=== PATIENT | male | born 1980 | race African-American/Black ===

== ENCOUNTER 2016-11-27 04:12 | Emergency (ER) | payer SELFPAY ==
[~2016-11-27] VITALS: Ht 185.4 cm; Wt 90.7 kg
[~2016-11-27 04:12] MED LIST: CYCL10TA2 PO; NAPR500T PO
[2016-11-27 04:25] VITALS: BP 145/87
[2016-11-27] MEDS ORDERED: HYDR-2666 PO (04:44)
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
[2016-11-27] MEDS ORDERED: DIPHTH,PERTUSS(ACELL),TET TOX 0.5 ML DISP.SYRIN. VAX IM ONE (05:00)
== END 2016-11-27 05:00 | disposition home or self-care (01) ==
LOC: ER 04:12
DX: S01.01XA Laceration without foreign body of scalp, initial encounter (principal); F12.10 Cannabis abuse, uncomplicated; Y04.8XXA Assault by other bodily force, initial encounter; Y93.89 Activity, other specified; Y92.098 Other place in other non-institutional residence as the place of occurrence of the external cause; Y99.8 Other external cause status
CPT/HCPCS: 12002; 90471; 90715; 99283-25

== ENCOUNTER 2016-12-07 07:16 | Emergency (ER) | payer SELFPAY ==
[~2016-12-07] VITALS: Ht 185.4 cm; Wt 90.7 kg
[~2016-12-07 07:16] MED LIST changes: +HYDR-2666 PO
[2016-12-07 07:24] VITALS: BP 144/85
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
== END 2016-12-07 07:54 | disposition home or self-care (01) ==
LOC: ER 07:16
DX: S01.01XD Laceration without foreign body of scalp, subsequent encounter (principal); F12.10 Cannabis abuse, uncomplicated; Y08.89XD Assault by other specified means, subsequent encounter; Y93.89 Activity, other specified; Y92.89 Other specified places as the place of occurrence of the external cause; Y99.8 Other external cause status
CPT/HCPCS: 99281

== ENCOUNTER 2017-01-30 06:41 | Observation (INO) | payer SELFPAY ==
[~2017-01-30] VITALS: Ht 185.4 cm; Wt 88.5 kg
--- NOTE | 2017-01-30 07:10 | PHYS DOC ---
Past Medical History Past Medical History: No Pertinent History Past Surgical History: No Surgical History Alcohol Use: None Drug Use: None Adult General Chief Complaint Chief Complaint: CHEST WALL PAIN HPI HPI Patient is a 36 year old male who presents with right-sided chest pain. 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 He denies a family history of heart disease but does smoke a pack per day for the last 20 years. He states he's never had a cardiac workup before. Review of Systems Review of Systems Constitutional: Denies fever or chills [] Eyes: Denies change in visual acuity, redness, or eye pain [] HENT: Denies nasal congestion or sore throat [] Respiratory: Denies cough or shortness of breath [] Cardiovascular: No additional information not addressed in HPI [] GI: Denies abdominal pain, nausea, vomiting, bloody stools or diarrhea [] : Denies dysuria or hematuria [] Musculoskeletal: Denies back pain or joint pain [] Integument: Denies rash or skin lesions [] Neurologic: Denies headache, focal weakness or sensory changes [] Endocrine: Denies polyuria or polydipsia [] Current Medications Current Medications Current Medications Medications (Trade) Dose Ordered Sig/Emerita Start Time Stop Time Status Last Admin Dose Admin Aspirin (Children'S Aspirin) 324 mg 1X ONCE 01/30/17 07:15 01/30/17 07:16 DC 01/30/17 07:14 324 MG Morphine Sulfate 2 mg PRN Q15MIN PRN 01/30/17 07:15 01/31/17 07:14 01/30/17 07:16 2 MG Allergies Allergies Allergies Coded Allergies Type Severity Reaction Last Updated Verified No Known Drug Allergies 05/20/16 No Physical Exam Physical Exam Constitutional: Well developed, well nourished, no acute distress, non-toxic appearance. [] HENT: Normocephalic, atraumatic, bilateral external ears normal, oropharynx moist, no oral exudates, nose normal. [] Eyes: PERRLA, EOMI, conjunctiva normal, no discharge. [] Neck: Normal range of motion, no tenderness, supple, no stridor. [] Cardiovascular:Heart rate regular rhythm, no murmur, mild tender to palpation over the sternum. Lungs & Thorax: Bilateral breath sounds clear to auscultation [] Abdomen: Bowel sounds normal, soft, no tenderness, no masses, no pulsatile masses. [] Skin: Warm, dry, no erythema, no rash. [] Back: No tenderness, no CVA tenderness. [] Extremities: No tenderness, no cyanosis, no clubbing, ROM intact, no edema. [] Neurologic: Alert and oriented X 3, normal motor function, normal sensory function, no focal deficits noted. [] Psychologic: Affect normal, judgement normal, mood normal. [] Current Patient Data Vital Signs Vital Signs Date Time Temp Pulse Resp B/P Pulse Ox O2 Delivery O2 Flow Rate FiO2 01/30/17 07:55 67 20 160/89 100 Room Air 01/30/17 06:54 97.7 97.7 Lab Values Laboratory Tests Test 01/30/17 06:50 White Blood Count 7.4x10^3/uL (4.0-11.0) Red Blood Count 5.26x10^6/uL (4.30-5.70) Hemoglobin 15.5g/dL (13.0-17.5) Hematocrit 46.9% (39.0-53.0) Mean Corpuscular Volume 89fL (79-100) Mean Corpuscular Hemoglobin 29pg (25-35) Mean Corpuscular Hemoglobin Concent 33g/dL (31-37) Red Cell Distribution Width 14.1% (11.5-14.5) Platelet Count 215x10^3/uL (140-400) Neutrophils (%) (Auto) 52% (31-73) Lymphocytes (%) (Auto) 35% (24-48) Monocytes (%) (Auto) 9% (0-9) Eosinophils (%) (Auto) 3% (0-3) Basophils (%) (Auto) 1% (0-3) Neutrophils # (Auto) 3.9x10^3uL (1.8-7.7) Lymphocytes # (Auto) 2.6x10^3/uL (1.0-4.8) Monocytes # (Auto) 0.7x10^3/uL (0.0-1.1) Eosinophils # (Auto) 0.2x10^3/uL (0.0-0.7) Basophils # (Auto) 0.1x10^3/uL (0.0-0.2) Prothrombin Time 13.0SEC (11.7-14.0) Prothrombin Time INR 1.0 (0.8-1.1) D-Dimer (Azra) < 0.27ug/mlFEU (0.00-0.50) Sodium Level 140mmol/L (136-145) Potassium Level 4.1mmol/L (3.5-5.1) Chloride Level 104mmol/L (98-107) Carbon Dioxide Level 28mmol/L (21-32) Anion Gap 8 (6-14) Blood Urea Nitrogen 13mg/dL (8-26) Creatinine 1.3mg/dL (0.7-1.3) Estimated GFR (Cockcroft-Gault) 74.8 Glucose Level 105mg/dL (70-99) H Calcium Level 8.6mg/dL (8.5-10.1) Magnesium Level 2.0mg/dL (1.8-2.4) Total Bilirubin 0.4mg/dL (0.2-1.0) Direct Bilirubin 0.1mg/dL (0.0-0.2) Aspartate Amino Transferase (AST) 25U/L (15-37) Alanine Aminotransferase (ALT) 46U/L (16-63) Alkaline Phosphatase 75U/L (46-116) Creatine Kinase 338U/L (39-308) H Creatine Kinase MB (Mass) 2.4ng/mL (0.0-3.6) Creatine Kinase MB Relative Index 0.7% (0-4) Troponin I Quantitative < 0.017ng/mL (0.000-0.055) KX-Xtq-S-Type Natriuretic Peptide 21pg/mL (0-124) Total Protein 7.7g/dL (6.4-8.2) Albumin 3.9g/dL (3.4-5.0) Lipase 493U/L (73-393) H Laboratory Tests 01/30/17 06:50 Laboratory Tests 01/30/17 06:50 EKG EKG EKG shows normal sinus rhythm with a rate of [address] elevations or T-wave inversions, normal axis, QTC 376 ms, as interpreted by me. Radiology/Procedures Radiology/Procedures [facility] [address] [place] [address] IMAGING REPORT Signed PATIENT: BASIL RANKIN ACCOUNT: [id number] : 1980 LOCATION: ER AGE: 36 SEX: M EXAM STATUS: REG ER ORD. PHYSICIAN: JORGE GREEN MD REASON: chest pain PROCEDURE: PORTABLE CHEST 1V Portable chest, 01/30/2017: History: Right-sided chest pain Comparison is made to a study from 05/20/2016. The heart size and pulmonary vascularity are normal. No pulmonary infiltrates are seen. There is no evidence of pleural fluid. IMPRESSION: No acute cardiopulmonary abnormality is detected. DICTATED and SIGNED BY: SABINO STERLING MD DATE: 01/30/17723 CC: JORGE GREEN MD; NO PCP ~ Impressions: Chest pain Tobacco abuse Course & Med Decision Making Course & Med Decision Making Pertinent Labs and Imaging studies reviewed. (See chart for details) EKG, chest x-ray does not show acute abnormalities. His first troponin is negative his d-dimer is also negative. His lipase is slightly elevated however he is not tender across his abdomen and this is in his chest wall versus chest area. He is being admitted to the hospitalist with cardiology consultation. Patient's agreeable plans in stable condition this time. Dragon Disclaimer Dragon Disclaimer This electronic medical record was generated, in whole or in part, using a voice recognition dictation system. Departure Departure Impression: Primary Impression: Chest pain Disposition: ADMITTED INPATIENT Admitting Physician: Scott Henderson Condition: STABLE Referrals: NO PCP (PCP) JORGE GREEN MD Jan 30, 2017 07:10
[2017-01-30 07:13] LABS: BASO # 0.1 x10^3/uL (0.0-0.2); BASO % 1 % (0-3); EOS % 3 % (0-3); HEMATOCRIT 46.9 % (39.0-53.0); HEMOGLOBIN 15.5 g/dL (13.0-17.5); LYMPH # 2.6 x10^3/uL (1.0-4.8); LYMPH % 35 % (24-48); MEAN CORPUSCULAR HEMOGLOBIN 29 pg (25-35); MEAN CORPUSCULAR HGB CONC 33 g/dL (31-37); MEAN CORPUSCULAR VOLUME 89 fL (79-100); MONO % 9 % (0-9); NEUT % 52 % (31-73); PLATELET COUNT 215 x10^3/uL (140-400); RED BLOOD COUNT 5.26 x10^6/uL (4.30-5.70); RED CELL DISTRIBUTION WIDTH 14.1 % (11.5-14.5); WHITE BLOOD COUNT 7.4 x10^3/uL (4.0-11.0)
[2017-01-30] MEDS ORDERED: MORPHINE SULFATE 2 MG/ML DISP.SYRIN. IV/SQ PRN (07:15)
[2017-01-30] MEDS ORDERED: ASPIRIN CHEWABLE 81 MG TABLET. PO ONE (07:15)
--- NOTE | 2017-01-30 07:15 | EKG ---
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
[2017-01-30 07:24] LABS: CALCIUM 8.6 mg/dL (8.5-10.1); CREATININE 1.3 mg/dL (0.7-1.3); GFR 74.8; POTASSIUM 4.1 mmol/L (3.5-5.1)
--- NOTE | 2017-01-30 07:28 | RAD ---
Portable chest, 01/30/2017: History: Right-sided chest pain Comparison is made to a study from 05/20/2016. The heart size and pulmonary vascularity are normal. No pulmonary infiltrates are seen. There is no evidence of pleural fluid. IMPRESSION: No acute cardiopulmonary abnormality is detected.
[2017-01-30 07:30] LABS: ALBUMIN 3.9 g/dL (3.4-5.0); DIRECT BILIRUBIN 0.1 mg/dL (0.0-0.2); TOTAL BILIRUBIN 0.4 mg/dL (0.2-1.0); TOTAL PROTEIN 7.7 g/dL (6.4-8.2)
[2017-01-30 07:37] LABS: CKMB INDEX 0.7 % (0-4); CKMB MASS 2.4 ng/mL (0.0-3.6)
[2017-01-30 08:18] LABS: BARBITURATES NEG (NEG); BENZODIAZEPINES NEG (NEG); CANNABINOIDS POS (NEG); COCAINE NEG (NEG); METHADONE NEG (NEG); OPIATES POS (NEG); PHENCYCLIDINE NEG (NEG)
[2017-01-30 08:19] LABS: BILIRUBIN,URINE NEGATIVE (NEG); GLUCOSE,URINE NEGATIVE (NEG); NITRITE,URINE NEGATIVE (NEG); PH,URINE 5.5; PROTEIN,URINE NEGATIVE (NEG-TRACE); UROBILINOGEN,URINE 0.2 mg/dL (0.2 mg/dL)
[2017-01-30 08:20] LABS: ETHANOL, URINE NEG (NEG)
[2017-01-30 08:26] LABS: BACTERIA,URINE 0 /HPF (0-FEW); RBC,URINE OCC /HPF (0-2); SQUAMOUS EPITHELIAL CELL,UR FEW /LPF; WBC,URINE OCC /HPF (0-4)
[2017-01-30] MEDS ORDERED: ONDANSETRON PF 4 MG/2 ML VIAL. IV PRN (08:45)
[2017-01-30] MEDS ORDERED: MORPHINE SULFATE 2 MG/ML DISP.SYRIN. IV PRN (08:45)
--- NOTE | 2017-01-30 09:26 | PDOC2 ---
ALDO TRAN TELEPHONE ANSWERING SERVICE OPERATOR 01/30/17 0926: CARDIAC CONSULT DATE OF CONSULT Date of Consult DATE: 01/30/17 TIME: 09:22 REASON FOR CONSULT Reason for Consult: Chest Pain REFERRING PHYSICIAN Referring Physician: Dr. Murphy SOURCE Source: Chart review, Patient HISTORY OF PRESENT ILLNESS HISTORY OF PRESENT ILLNESS This is a 36 yo male who presented with complaints of chest pain. Patient reports pain began Monday afternoon. Located in his right chest. Describes as a constant tightness; feels as if the "muscle is tight." Pain worsened by taking a deep breath and with ceratin movements. Also worsened with pressing on right chest. Improved with laying down. Denies any associated palpitations, dizziness, diaphoresis, SOA, recent ADAMES, or nausea/vomiting. No recent fevers/ illness. Has been using different power tools recently, but denies any known injury. No prior cardiac history or cardiac workup. PAST MEDICAL HISTORY Cardiovascular: No pertinent hx Pulmonary: No pertinent hx GI: No pertinent hx Heme/Onc: No pertinent hx Hepatobiliary: No pertinent hx Psych: No pertinent hx Rheumatologic: No pertinent hx Infectious disease: No pertinent hx ENT: No pertinent hx Endocrine: No pertinent hx Dermatology: No pertinent hx PAST SURGICAL HISTORY Past Surgical History: No pertinent history FAMILY HISTORY Family History: Diabetes SOCIAL HISTORY Smoke: <1 pack per day ALCOHOL: none Drugs: Marijuana Lives: with Family CURRENT MEDICATIONS CURRENT MEDICATIONS Current Medications Medications (Trade) Dose Ordered Sig/Emerita Route PRN Reason Start Time Stop Time Status Last Admin Dose Admin Aspirin (Children'S Aspirin) 324 mg 1X ONCE PO 01/30/17 07:15 01/30/17 07:16 DC 01/30/17 07:14 Morphine Sulfate 2 mg PRN Q15MIN PRN IV/SQ PAIN GREATER THAN 3/10 01/30/17 07:15 01/31/17 07:14 01/30/17 07:16 ALLERGIES ALLERGIES: Coded Allergies: No Known Drug Allergies (Unverified , 05/20/16) ROS Review of System 14 point ROS conducted with pertinent positives noted above in HPI. PHYSICAL EXAM General: Alert, Oriented X3, Cooperative, No acute distress HEENT: Atraumatic, Mucous membr. moist/pink Lungs: Clear to auscultation, Other (right chest tenderness upon palpation) Heart: Regular rate, Normal S1, Normal S2, No murmurs, Other Abdomen: Soft, No tenderness Extremities: No edema, Normal pulses Skin: No significant lesion Neuro: Normal speech, Normal tone Psych/Mental Status: Mental status NL, Mood NL MUSCULOSKELETAL: No joint tenderness VITALS VITALS Vital Signs Date Time Temp Pulse Resp B/P Pulse Ox O2 Delivery O2 Flow Rate FiO2 01/30/17 08:48 60 21 135/91 98 Room Air 01/30/17 06:54 97.7 97.7 LABS Lab: Laboratory Tests Test 01/30/17 06:50 01/30/17 08:05 White Blood Count 7.4x10^3/uL (4.0-11.0) Red Blood Count 5.26x10^6/uL (4.30-5.70) Hemoglobin 15.5g/dL (13.0-17.5) Hematocrit 46.9% (39.0-53.0) Mean Corpuscular Volume 89fL (79-100) Mean Corpuscular Hemoglobin 29pg (25-35) Mean Corpuscular Hemoglobin Concent 33g/dL (31-37) Red Cell Distribution Width 14.1% (11.5-14.5) Platelet Count 215x10^3/uL (140-400) Neutrophils (%) (Auto) 52% (31-73) Lymphocytes (%) (Auto) 35% (24-48) Monocytes (%) (Auto) 9% (0-9) Eosinophils (%) (Auto) 3% (0-3) Basophils (%) (Auto) 1% (0-3) Neutrophils # (Auto) 3.9x10^3uL (1.8-7.7) Lymphocytes # (Auto) 2.6x10^3/uL (1.0-4.8) Monocytes # (Auto) 0.7x10^3/uL (0.0-1.1) Eosinophils # (Auto) 0.2x10^3/uL (0.0-0.7) Basophils # (Auto) 0.1x10^3/uL (0.0-0.2) Prothrombin Time 13.0SEC (11.7-14.0) Prothromb Time International Ratio 1.0 (0.8-1.1) D-Dimer (Azra) < 0.27ug/mlFEU (0.00-0.50) Sodium Level 140mmol/L (136-145) Potassium Level 4.1mmol/L (3.5-5.1) Chloride Level 104mmol/L (98-107) Carbon Dioxide Level 28mmol/L (21-32) Anion Gap 8 (6-14) Blood Urea Nitrogen 13mg/dL (8-26) Creatinine 1.3mg/dL (0.7-1.3) Estimated GFR (Cockcroft-Gault) 74.8 Glucose Level 105mg/dL (70-99) Calcium Level 8.6mg/dL (8.5-10.1) Magnesium Level 2.0mg/dL (1.8-2.4) Total Bilirubin 0.4mg/dL (0.2-1.0) Direct Bilirubin 0.1mg/dL (0.0-0.2) Aspartate Amino Transf (AST/SGOT) 25U/L (15-37) Alanine Aminotransferase (ALT/SGPT) 46U/L (16-63) Alkaline Phosphatase 75U/L (46-116) Creatine Kinase 338U/L (39-308) Creatine Kinase MB (Mass) 2.4ng/mL (0.0-3.6) Creatine Kinase MB Relative Index 0.7% (0-4) Troponin I Quantitative < 0.017ng/mL (0.000-0.055) LX-Njr-V-Type Natriuretic Peptide 21pg/mL (0-124) Total Protein 7.7g/dL (6.4-8.2) Albumin 3.9g/dL (3.4-5.0) Lipase 493U/L (73-393) Urine Collection Type Void Urine Color Yellow Urine Clarity Clear Urine pH 5.5 Urine Specific [place] 1.015 Urine Protein Negativemg/dL (NEG-TRACE) Urine Glucose (UA) Negativemg/dL (NEG) Urine Ketones (Stick) Negativemg/dL (NEG) Urine Blood Negative (NEG) Urine Nitrite Negative (NEG) Urine Bilirubin Negative (NEG) Urine Urobilinogen Dipstick 0.2mg/dL (0.2 mg/dL) Urine Leukocyte Esterase Negative (NEG) Urine RBC Occ/HPF (0-2) Urine WBC Occ/HPF (0-4) Urine Squamous Epithelial Cells Few/LPF Urine Bacteria 0/HPF (0-FEW) Urine Mucus Marked/LPF Urine Opiates Screen Pos (NEG) Urine Methadone Screen Neg (NEG) Urine Barbiturates Neg (NEG) Urine Phencyclidine Screen Neg (NEG) Urine Amphetamine/Methamphetamine Neg (NEG) Urine Benzodiazepines Screen Neg (NEG) Urine Cocaine Screen Neg (NEG) Urine Cannabinoids Screen Pos (NEG) Urine Ethyl Alcohol Neg (NEG) ASSESSMENT/PLAN ASSESSMENT/PLAN 1. Chest pain, non-cardiac 2. Tobaccoism Recommendations Initial trop negative; onset of symptoms > 6hrs ago. EKG without ischemic changes Pain likely MSK in origin as it is reproducible with palpation and with certain movement. Discussed and encouraged smoking cessation. No further cardiac workup warranted. Thanks for consultation. Problems: BHARATI FONTAINE MD 01/30/17 1556: CARDIAC CONSULT ALLERGIES ALLERGIES: Coded Allergies: No Known Drug Allergies (Unverified , 05/20/16) ASSESSMENT/PLAN ASSESSMENT/PLAN Patient seen and examined. Agree with above nurse practitioner note. 36-year-old male presenting with chest pain 48 hours. Examination notable for muscular skeletal right-sided chest pain. Normal cardiac exam. Labs are notable for negative cardiac enzymes. EKG and chest x-ray are unremarkable. We discussed the need for better dietary control given his hypertriglyceridemia as well as tobacco cessation. Spent greater than 15 minutes discussing these issues. Supportive care. No further testing necessary as noted above. Please call with questions. Thank you for this consultation. Problems: ALDO TRAN APRN Jan 30, 2017 09:26 BHARATI FONTAINE MD Jan 30, 2017 15:56
[2017-01-30 09:30] VITALS: BP 137/91
[2017-01-30 10:37] LABS: CHOLESTEROL/HDL RATIO 6.7
[2017-01-30 10:46] VITALS: BP 121/80
--- NOTE | 2017-01-30 15:24 | SSS ---
ADMIT DATE: 01/30/2017 CHIEF COMPLAINT: Chest wall pain. HISTORY OF PRESENT ILLNESS: The patient is a 36-year-old -[place] gentleman without any medical history, who presented to the Emergency Room with sternal chest pain. He relates that this started on Monday while he was resting. Pain has been going on ever since. This gets worse with deep breathing. Also, point tenderness just right to the lower sternum. He denies any recent illnesses. Denies any injuries, although his work is fairly physical. Denies any shortness of breath, diaphoresis, radiation of the pain to any other region of the body. PAST MEDICAL HISTORY: None. FAMILY HISTORY: No heart disease known. 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 Smokes about a pack a day. No significant alcohol use. Positive for marijuana. ALLERGIES: No known drug allergies. HOME MEDICATIONS: None. REVIEW OF SYSTEMS: Positive as per HPI. Rest of organ system review is negative. PHYSICAL EXAMINATION: VITAL SIGNS: From today show a blood pressure of 121/88, heart rate of 62, respiratory rate of 18. He is afebrile. GENERAL: This is a well-nourished, well-developed, 36-year-old -[place] gentleman, alert and oriented, in no acute distress. HEENT: Shows no scleral icterus. NECK: Supple, without any lymphadenopathy. LUNGS: Clear to auscultation bilaterally. HEART: With regular rate and rhythm. ABDOMEN: Positive bowel sounds, soft, nontender. EXTREMITIES: Show no edema, no clubbing, no cyanosis. SKIN: Warm, soft and dry. LABORATORY DATA: CBC from this morning show WBC of 7.4, hemoglobin 15.5, platelets of 215. BUN and creatinine of 13 and 1.3, normal electrolytes, normal LFTs. CK slightly elevated at 338. Lipid profile this morning with triglycerides of 356, cholesterol of 222. Lipase minimally elevated at 393 and TSH at 1.4. Urine drug screen positive for opiates and cannabinoids. IMAGING: Chest x-ray obtained in the Emergency Room shows no acute cardiopulmonary abnormality. ASSESSMENT AND PLAN: The patient is a 36-year-old gentleman, who presents with chest wall pain, reproducible and respirophasic. Suspect this is costochondritis. He will be treated with NSAIDs as needed. Cardiology has been consulted. This is highly unlikely to be cardiac in etiology. Lipid profile is actually significantly is normal. Should follow up with his PCP to repeat labs. At age 36 without any family history or other risk factors, starting statin would not be appropriate yet. DISCHARGE DATE: 01/30/17 DISCHARGE DISPOSITION: home DISCHARGE CONDITION: stable DISCHARGE DIAGNOSIS: costochondritis DISCHARGE MEDICATIONS: see MAR DISCHARGE INSTRUCTIONS: follow up with PCP in 1 week ANDERS BAH MD DR: ELMA/nts JOB#: [id number] / [id number] ANDEEP
== END 2017-01-30 14:10 | disposition home or self-care (01) ==
LOC: ER 06:41 → 4 NORTH 08:00
PROVIDERS: ADMIT Internal Medicine Hematology & Oncology; ATTEND Internal Medicine Hematology & Oncology
DX: M94.0 Chondrocostal junction syndrome [Tietze] (principal); F17.210 Nicotine dependence, cigarettes, uncomplicated; F12.90 Cannabis use, unspecified, uncomplicated; F11.90 Opioid use, unspecified, uncomplicated; Z83.3 Family history of diabetes mellitus
CPT/HCPCS: 36415; 71010; 80048; 80061; 80076; 81001; 82553; 83690; 83735; 83880; 84443; 84484; 85027; 85379; 85610; 93005; 96374; 99285; G0378; G0481; J2270; G0379